=== PATIENT | female | born 1990 | race Caucasian/White ===

== ENCOUNTER 2019-02-16 11:23 | Outpatient (CLI) | payer MEDICAID, SELFPAY ==
--- NOTE | 2020-02-17 14:30 | DI.RAD_ITS ---
EXAM: XR ANKLE LT COMPLETE CLINICAL HISTORY: LT ANKLE JOINT PAIN, M25.572. TECHNIQUE: 2D digital imaging was performed. COMPARISON: No exams were available for comparison FINDINGS: There is soft tissue swelling laterally. There is a nondisplaced fracture of the posterior malleolus . Medial malleolus and lateral malleolus are intact as is the talar dome and base of the 5th metatar elsy. Os trigonum is noted. Increased density is seen in the anterior aspect of the pre Achilles fat . Achilles tendon itself appears unremarkable. There is dorsal talar beaking evident but without ev idence of osseous talocalcaneal coalition. IMPRESSION: Abnormal findings as above. However, the main acute finding is a nondisplaced fracture of the aed trainer ior malleolus. There is soft tissue swelling, more so laterally than medially. There is no obvious fracture of the distal fibula. DATA REPOSITORY: RADIATION DOSE DELIVERED:
== END 2019-02-16 11:43 ==
PROVIDERS: Visit Provider Physician Assistant Medical
DX: S82.892A Other fracture of left lower leg, initial encounter for closed fracture (principal); M79.89 Other specified soft tissue disorders
CPT/HCPCS: 73610

== ENCOUNTER 2019-10-05 20:39 | Emergency (ER) | payer MEDICAID, SELFPAY ==
[2019-10-05 20:44] VITALS: BP 136/87; PULSE 77; RESP 16; TEMP 36.7; O2SAT 99
--- NOTE | 2019-10-05 20:49 | ED.GENADUL_ITS ---
Discharge Plan Disposition Patient Disposition: HOME Condition: Good Discharge Details Chief Complaint: Laceration Clinical Impression: Splinter Primary Care Provider: Kristina,Local ED Provider: Kimo Stafford Home Meds and New Rx's Prescriptions: New cephalexin [Keflex] 500 mg capsule 500 mg PO BID 5 Days Qty: 10 RF: 0 Discharge Instructions Additional Instructions: The splint has been removed, your tetanus shot is been updated. Please take the antibiotic as directed. We will help set you up with a new primary care provider. If you notice any worsening of your symptoms, or any new symptoms such as vomiting, diarrhea, fever, chills, shortness of breath, chest pain, numbness, weakness, or fainting , please return immediately to the emergency department for reevaluation. Please follow up with your primary care provider as soon as possible for reassessment and reevaluation. As always, it was a pleasure participating in your medical care today. Medical Decision Making 29-year-old female who presents today for evaluation of splinter. The patient states that she was running her hand along a table when a notable s plinter got injected all the way up the entire length of her fifth digit nail. Patient came in for further evaluation. Tetanus is not up-to-date. Aside for pain at the finger, she denies any other complaints at this time. No other modifying factors. Patient is also asking to be set up with a PCP. Physical exam demonstrates a notable splinter on the fifth digit of the left hand extending from the edge of the nail all the way up to the proximal aspect of the nail at the nail bed. We will perform block, attempt to remove the splinter. Start her on antibiotic secondary to the notable size of the splinter and location. We will help her establish PCP and update her tetanus. The patient's finger was blocked, complete anesthesia was achieved, no vascular compromise, a small petite aspect of the nail was cut at the distal tip, using hemostats the large splinter was then successfully removed without complication. Patient tolerated procedure well. She will be given 5 days of Keflex s econdary to the notable size of the splinter, and potential for infection under the nail. No indication for x-ray imaging, no evidence of fracture. Patient will be discharged home. We will establish new PCP for her. Discussed red flags which return. I have extensively reviewed the treatment plan and discharge instructions with the patient. I have addressed all patient concerns at this time. The patient was made aware of what symptoms to monitor for that would warrant a return to the emergency department. Discussed the plan with the patient, they demonstrate verbal understanding and agreement with our assessment and plan at this time. HPI General Date/Time Provider Initiated Documentation: 10/05/19 20:39 . HPI Narrative: 29-year-old female who presents today for evaluation of splinter. The patient states that she was running her hand along a table when a notable splinter got injected all the way up the entire length of her fifth digit nail. Patient came in for further evaluation. Tetanus is not up-to-date. Aside for pain at the finger, she denies any other complaints at this time. No other modifying factors. Patient is also asking to be set up with a PCP. Related Data Home Medications Medication Instructions Recorded Confirmed cephalexin [Keflex] 500 mg PO BID 5 Days #10 cap 10/05/19 Previous Rx's Medication Instructions Recorded cephalexin [Keflex] 500 mg PO BID 5 Days #10 cap 10/05/19 Allergies Allergy/AdvReac Type Severity Reaction Status Date / Time No Known Allergies Allergy Unverified 10/05/19 20:50 General Stated Complaint: Laceration VICKY: 4 Review of Systems All systems reviewed & are unremarkable except as noted in HPI and below [facility] Social History Smoking/Tobacco Use Status: Current every day Alcohol Intake: current Alcohol Intake frequency: a few times a week Substance use type: does not use Do you feel safe at home: Yes Do you feel safe in your relationship?: Yes Exam Narrative Exam Narrative: 1.Const: Well-nourished, Well-developed, appearing stated age 2.Eyes: PERRL, no conjunctival injection, and symmetrical lids. 3.ENT: Atraumatic external nose and ears. Moist MM. Neck: Symmetric, trachea midline, No thyromegaly. 4.CVS: +S1/S2, No murmurs or gallops. Peripheral pulses 2+ and equal in all extremities. Brisk capillary refill in all extremities. 5.RESP: Unlabored respiratory effort. Clear to auscultation bilaterally. No wheezes rales or rhonchi 6.GI: Soft, Nontender/Nondistended, No hepatosplenomegaly. No guarding or rebound. 7.MSK: Normocephalic/Atraumatic, Extremities w/o deformity or ttp No cyanosis or clubbing, Normal movement of all extremities. The patient's left hand fifth digit demonstrates a linear splinter traveling all the way up from the tip of the nail to the proximal base. No bleeding. Minimal swelling. Mild tenderness. No other abnormalities 8.Skin: Warm, Dry. No rashes or lesions. 9.Neuro: clinical data assistant II-XII grossly intact. Sensation grossly intact, no focal neurologic deficits. 10.Psych: (AAO) x3. Appropriate mood and affect Course Vital Signs Vital signs: Vital Signs Temperature 36.7 C 10/05/19 20:44 Pulse 77 10/05/19 20:44 Respiratory Rate 16 10/05/19 20:44 Blood Pressure 136/87 10/05/19 20:44 Pulse Oximetry 99 10/05/19 20:44 Temperature 36.7 C 10/05/19 20:44 Temperature Source Skin 10/05/19 20:44 Pulse 77 10/05/19 20:44 Respiratory Rate 16 10/05/19 20:44 Respiratory Effort Non-Labored 10/05/19 20:47 Blood Pressure 136/87 10/05/19 20:44 Blood Pressure Position Sitting 10/05/19 20:44 Pulse Oximetry 99 10/05/19 20:44 Oxygen Delivery Method Room Air 10/05/19 20:44 Oxygen Flow Rate 0 10/05/19 20:44 Pain Level 7 10/05/19 20:47 Procedures Foreign Body Removal Time Out Performed: yes Site: left and hand (Fifth finger) Description of foreign body: other (Wood) Sedation/Analgesia: none Technique: manual removal, removal with forceps and incision made to facilitate removal Confirmed by:: direct visualization Complications: none Post-procedure exam: awake, alert, normal BP, normal HR and normal O2 sat Neurovascular: normal distal pulse, normal capillary fill, distal light touch sensation intact, distal motor function normal and no signs of compartment syndrome
[2019-10-05] MEDS: Bupivacaine 0.5% Pres-Free 30 ML VIAL (20:59)
[2019-10-05 21:14] VITALS: BP 136/87; PULSE 77; RESP 16; TEMP 36.7; O2SAT 99
--- NOTE | 2019-10-08 08:39 | PDOC.ERCMPRO ---
- If Service Date Differs Date of service: 10/07/19 Time of Service: 08:40 Care Management Progress Note At the request of ED provider, CM coordinates a referral to Parvez Rapp MD, on-call doc, of [facility] to assist Nicole in obtaining a follow up appointment and in establishing care with a PCP.
== END 2019-10-06 04:15 | disposition home or self-care (01) ==
PROVIDERS: Emergency Provider Student in an Organized Health Care Education/Training Program
DX: S60.457A Superficial foreign body of left little finger, initial encounter (principal); W45.8XXA Other foreign body or object entering through skin, initial encounter
CPT/HCPCS: 90471; 99284; 99283

== ENCOUNTER 2020-02-28 21:17 | Outpatient (REF) | payer MEDICAID, SELFPAY | END 2020-02-28 21:37 | LOC: LBN 21:17 | PROVIDERS: Visit Provider Physician Assistant Medical | DX: R30.0 Dysuria (principal) | CPT/HCPCS: 87086 ==

== ENCOUNTER 2020-03-04 16:01 | Outpatient (CLI) | payer MEDICAID, SELFPAY ==
--- NOTE | 2020-03-04 13:00 | DI.RAD_ITS ---
EXAM: XR ANKLE LT COMPLETE CLINICAL HISTORY: L ankle fx TECHNIQUE: 2D digital imaging was performed. COMPARISON: CR XR ANKLE LT COMPLETE from 02/17/2020 FINDINGS: BONES: There has been no change in alignment of the nondisplaced posterior malleolar fracture. No greg ny destructive lesion is seen. JOINTS:The ankle mortise is normally aligned. SOFT TISSUE: Normal. IMPRESSION: Stable posterior malleolar fracture. DATA REPOSITORY: RADIATION DOSE DELIVERED:
== END 2020-03-04 16:21 ==
PROVIDERS: Visit Provider Physician Assistant
DX: S82.892A Other fracture of left lower leg, initial encounter for closed fracture (principal)
CPT/HCPCS: 73610

== ENCOUNTER 2020-04-15 13:53 | Outpatient (CLI) | payer MEDICAID, SELFPAY ==
--- NOTE | 2020-04-15 13:45 | DI.RAD_ITS ---
EXAM: XR ANKLE LT COMPLETE CLINICAL HISTORY: f/u TECHNIQUE: 2D digital imaging was performed. COMPARISON: CR XR ANKLE LT COMPLETE from 03/04/2020 FINDINGS: BONES: There is a healing nondisplaced posterior malleolar fracture. The fracture line is less well visualized on the current examination. No bony destructive lesion is seen. JOINTS:The ankle mortise is normally aligned. SOFT TISSUE: Normal. IMPRESSION: Healing nondisplaced posterior malleolar fracture. DATA REPOSITORY: RADIATION DOSE DELIVERED:
== END 2020-04-15 13:54 | disposition home or self-care (01) ==
LOC: DIORS 13:53
PROVIDERS: Visit Provider Physician Assistant
DX: S82.892D Other fracture of left lower leg, subsequent encounter for closed fracture with routine healing (principal)
CPT/HCPCS: 73610

== ENCOUNTER 2020-04-27 14:45 | Outpatient (REF) | payer MEDICAID, SELFPAY ==
[2020-04-27 20:58] LABS: Anion Gap 10.3 mmol/L (3-11); BUN 10 mg/dL (7-18); CO2 26.7 mmol/L (21.0-32.0); CREATININE 0.8 mg/dL (0.55-1.02); Calcium 9.5 mg/dL (8.5-10.1); Calculated LDL 104 mg/dL (<100); Chloride 103 mmol/L (98-107); Cholesterol 193 mg/dL (<200); Glucose 79 mg/dL (74-106); HDL Cholesterol 81 mg/dL (40-60); Potassium 4.2 mmol/L (3.5-5.1); Sodium 140 mmol/L (136-145); Triglyceride 41 mg/dL (<150)
[2020-04-29 09:53] LABS: Syphilis Serology (RPR) Negative (Negative)
[2020-04-29 10:09] LABS: HBs Antibody, Quant <3.1 mIU/mL (See Note); Hepatitis B Surface Ab Negative (See Note)
[2020-04-29 10:19] LABS: Hepatitis B Surface Ag Negative (Negative)
[2020-04-29 10:47] LABS: HIV-1/2 Ag & Ab Screen Negative (Negative)
[2020-04-29 10:56] LABS: Hepatitis C Ab w Rflx HCV PCR Negative (Negative)
[2020-04-29 14:09] LABS: Chlamydia Result Negative (Negative); GC Result Negative (Negative)
[2020-04-30 12:09] LABS: C.trach, Misc, Amplified RNA Negative (Negative); N.gonorr, Misc, Amplified RNA Negative (Negative); SOURCE: THROAT
== END 2020-04-27 14:46 | disposition home or self-care (01) ==
LOC: NCHCN 14:45
PROVIDERS: Visit Provider Nurse Practitioner Family
DX: Z11.3 Encounter for screening for infections with a predominantly sexual mode of transmission (principal); Z11.59 Encounter for screening for other viral diseases; Z13.220 Encounter for screening for lipoid disorders; Z11.4 Encounter for screening for human immunodeficiency virus [HIV]
CPT/HCPCS: 80048; 80061; 86706; 86803; 87340; 87389; 87491; 87591; 86592